=== PATIENT | male | born 1990 | race African-American/Black ===

== ENCOUNTER 2017-11-30 10:35 | Day surgery (SDC) | payer OTHER ==
[2017-11-30] VITALS (7 sets, daily range): BP systolic 119–159; BP diastolic 51–86
[~2017-11-30] VITALS: Ht 182.9 cm; Wt 86.0 kg
[~2017-11-30 10:35] MED LIST: NO HOME MEDS; cefazolin/dext.iso 2gm/100 ML IV ONE; famotidine 20mg tablet PO ONE; ringers solution, lacted 1,000 ML IV SCH
[2017-11-30] MEDS ORDERED: ROPIVAcaine 0.5% (5mg/ml) 30ml vial ONE ×2 (13:46→15:30)
[2017-11-30] MEDS ORDERED: midazolam 2 mg/2 ml injection ONE (15:29)
[2017-11-30] MEDS ORDERED: fentaNYL /PF 50mcg/ml 5ml ampule ONE (15:29)
[2017-11-30] MEDS ORDERED: ondansetron/PF 4mg/2ml inj ONE (15:32)
[2017-11-30] MEDS ORDERED: sevoflurane 250ml liquid IH ONE (15:32)
[2017-11-30] MEDS ORDERED: LIDOcaine 2% (20mg/ml) 5ml vial ONE (15:51)
[2017-11-30] MEDS ORDERED: propofol inj 20 ML IV ONE (15:51)
[2017-11-30] MEDS ORDERED: dexamethasone sod phosphate 4mg/ml inj. ONE (15:51)
[2017-11-30] MEDS ORDERED: ceFAZolin 1000mg inj ONE (15:57)
[2017-11-30] MEDS ORDERED: ringers solution, lacted 1,000 ML IV SCH (17:18)
[2017-11-30] MEDS ORDERED: proCHLORperazine 10 MG/2 ml inj IV PRN (17:20)
[2017-11-30] MEDS ORDERED: ondansetron/PF 4mg/2ml inj IV PRN (17:20)
[2017-11-30] MEDS ORDERED: morphine 4 MG/ML inj SYRINge IV PRN ×2 (17:20)
[2017-11-30] MEDS ORDERED: meperidine/PF 25mg/ml syringe IV PRN ×3 (17:20)
== END 2017-11-30 17:05 | disposition home or self-care (01) ==
LOC: PAS 10:35 → EDBD 10:35 → EEVIPCON 14:30 → PAS 17:05
PROVIDERS: ATTEND Orthopaedic Surgery
DX: S62.327A Displaced fracture of shaft of fifth metacarpal bone, left hand, initial encounter for closed fracture (principal); X58.XXXA Exposure to other specified factors, initial encounter; Y93.89 Activity, other specified; Y92.89 Other specified places as the place of occurrence of the external cause; Y99.8 Other external cause status
CPT/HCPCS: 26615; A6449; C1713; J0690; J1100; J2001; J2250; J2405; J2704; J3010; J7120; A7000; J2795